=== PATIENT | female | born 1955 | race Caucasian/White ===

== ENCOUNTER 2016-05-05 15:34 | Emergency (ER) | payer BC | END 2016-05-05 17:26 | disposition home or self-care (01) | LOC: ER 15:34 | DX: F10.20 Alcohol dependence, uncomplicated (principal); F41.9 Anxiety disorder, unspecified; F17.210 Nicotine dependence, cigarettes, uncomplicated | CPT/HCPCS: 36415; 80053; 80307; 80320; 80329; 81001; 84439; 84443; 85025; 85610; 87077; 87088; 87186 ==